=== PATIENT | female | born 1955 | race Caucasian/White ===

== ENCOUNTER 2021-02-25 08:55 | Outpatient (REF) | payer MEDICARE, OTHER, SELFPAY ==
[2021-02-25 11:07] LABS: MANUAL DIFF FLAG NO
[2021-02-25 11:13] LABS: Basophils Percent Auto 0.8 % (0-2); Eosinophils Absolute Auto 0.3 X10*3/uL (0.0-0.4); Hematocrit 43.4 % (37-47); Hemoglobin 14.5 g/dl (12.0-16.0); Imm Gran Abs Auto 0.01 X10*3/uL (0.00-0.03); Imm Gran Pct Auto 0.2 % (0.0-0.4); Mean Corpuscular HGB Conc 33.4 g/dl (31.0-35.0); Mean Corpuscular Hemoglobin 29.1 pg (27.0-33.0); Mean Platelet Volume 11.5 fL (9.4-12.3); Monocytes Absolute Auto 0.4 X10*3/uL (0.1-1.2); Monocytes Percent Auto 8.1 % (2-11); Neutrophils Absolute Auto 2.4 X10*3/uL (2.0-8.3); Neutrophils Percent Auto 45.9 % (45-73); Platelet Count 207 X10*3/uL (160-400); Red Blood Count 4.99 X10*6/uL (4.20-5.50); Red Cell Distribution Width 13.5 % (11.0-16.0); White Blood Count 5.2 X10*3/uL (4.8-10.8)
[2021-02-25 11:44] LABS: Alanine Aminotransferase 20 U/L (0-31); Alkaline Phosphatase 56 U/L (39-117); Anion Gap 11 (12-20); Aspartate Amino Transferase 21 U/L (5-31); Blood Urea Nitrogen 13 mg/dL (9-16); Calcium 9.3 mg/dL (8.4-10.2); Carbon Dioxide 28 mmol/L (22-29); Chloride 107 mmol/L (96-108); Cholesterol 229 mg/dL; Estimated Glomerular Filt Rate > 60; Glucose Fasting 90 mg/dL (60-99); HDL Cholesterol 57 mg/dL; LDL Cholesterol Calculated 148 mg/dl; Potassium 4.4 mmol/L (3.3-5.1); Sodium 142 mmol/L (135-145); Total Protein 6.9 g/dL (6.5-8.0); Triglycerides 124 mg/dL
== END 2021-02-25 08:56 | disposition home or self-care (01) ==
LOC: HO.MANLDS 08:55
PROVIDERS: PCP Internal Medicine; Visit Provider Physician Assistant
DX: E78.00 Pure hypercholesterolemia, unspecified (principal)
CPT/HCPCS: 36415; 80053; 80061; 85025

== ENCOUNTER 2021-07-23 14:27 | Outpatient (REF) | payer MEDICARE, OTHER, SELFPAY ==
--- NOTE | ~2021-07-23 | XR_ITS ---
EXAMINATION: XR LUMBOSACRAL SPINE CLINICAL INFORMATION: Low back pain COMPARISON: None TECHNIQUE: Three views of the lumbosacral spine. FINDINGS: There is mild curvature of the lower lumbar spine to the right. Bone alignment is otherwise normal. There is mild disc space narrowing at L1-L2. There is multilevel degenerative spondylosis. There is lower lumbar spine facet arthritis. XR/XR lumbar spine 2-3V IMPRESSION: Degenerative changes.
== END 2021-07-23 14:28 | disposition home or self-care (01) ==
LOC: HO.XRAY 14:27
PROVIDERS: PCP Internal Medicine; Visit Provider Physician Assistant
DX: M51.36 Other intervertebral disc degeneration, lumbar region (principal)
CPT/HCPCS: 72100

== ENCOUNTER 2021-08-11 07:20 | Outpatient (REF) | payer MEDICARE, OTHER, SELFPAY ==
--- NOTE | ~2021-08-11 | MR_ITS ---
EXAMINATION: MR LUMBAR SPINE WITHOUT CONTRAST CLINICAL INFORMATION: Intervertebral disc degeneration. Low back pain. COMPARISON: Lumbar spine radiographs 07/23/2021. TECHNIQUE: MRI of the lumbar spine was obtained using routine sequences without contrast. FINDINGS: There is grade 1 anterolisthesis of L4 on L5 related to advanced facet degenerative changes at this level. Alignment is otherwise normal. Vertebral heights are preserved. No acute bone marrow signal changes. There is loss of intervertebral disc height and T2 signal intensity at multiple levels related to disc degeneration. The tip of the conus medullaris is located at L2. No mass effect on the conus. Visualized distal cord signal intensity is normal. At L1-L2 there is a diffusely bulging disc. Bilateral facet degenerative change. Mild canal stenosis. No mass effect on the traversing or foraminal nerve roots. At L2-L3 there is a diffusely bulging disc. Bilateral facet degenerative change. Mild canal stenosis. No mass effect on the traversing or foraminal nerve roots. At L3-L4 there is a diffusely bulging disc. Bilateral facet degenerative change. Mild canal stenosis. There is asymmetric narrowing of the left subarticular zone causing medial displacement of the left traversing L4 nerve roots. No foraminal nerve root compression. At L4-L5 there is a shallow central protrusion superimposed upon a pseudodisc bulge. Advanced bilateral facet degenerative change. Severe canal stenosis. Moderate compression of the left L4 foraminal nerve root. At L5-S1 there is a slightly bulging disc. Bilateral facet degenerative change. No canal stenosis. Partial effacement of the perineural fat with mild mass effect on both L5 foraminal nerve roots. Limited visualization of the retroperitoneal anatomy reveals no abnormal finding. Psoas and paraspinal muscle groups are symmetric. MR/MR lumbar spine wo con IMPRESSION: There is multilevel degenerative spondylosis of the lumbar spine with grade 1 anterolisthesis of L4 on L5 related to advanced facet degenerative changes at this level. Severe canal stenosis at L4-L5. Mild canal stenosis at L1-L2, L2-L3, and L3-L4. There are varying degrees of mass effect on the traversing and foraminal segments of the nerve roots as described above. For instance at L4-L5 there is moderate compression of the left L4 foraminal nerve root. Mild mass effect on both L5 foraminal nerve roots related to degenerative changes at L5-S1.
== END 2021-08-11 07:21 | disposition home or self-care (01) ==
LOC: HO.MRI 07:20
PROVIDERS: Visit Provider Physician Assistant
DX: M51.36 Other intervertebral disc degeneration, lumbar region (principal)
CPT/HCPCS: 72148

== ENCOUNTER 2022-02-24 13:06 | Outpatient (REF) | payer MEDICARE, OTHER, SELFPAY ==
--- NOTE | ~2022-02-24 | US_ITS ---
EXAMINATION: US RETROPERITONEAL LIMITED (AORTA) CLINICAL INFORMATION: Family history of abdominal aortic aneurysm. COMPARISON: None TECHNIQUE: Tipton-scale, color Doppler and spectral Doppler evaluation of the abdominal aorta. FINDINGS: The aorta is atherosclerotic. The measurements of the aorta in maximum AP and transverse dimensions respectively are as follows: Proximal: 2.6 x 2.6 cm. Mid: 2.2 x 2.2 cm. Distal: 2.1 x 1.6 cm. PSV: 77 cm/s. The measurements of the common iliac arteries in maximum AP and TRV dimensions are as follows: Right Common Iliac Artery: 1.3 x 1.4 cm. Left Common Iliac Artery: 1.3 x 1.5 cm. US/US abdominal aortic aneurysm IMPRESSION: Negative for abdominal aortic aneurysm.
== END 2022-02-24 13:07 | disposition home or self-care (01) ==
LOC: HO.US 13:06
PROVIDERS: Visit Provider Physician Assistant
DX: Z13.6 Encounter for screening for cardiovascular disorders (principal); Z82.49 Family history of ischemic heart disease and other diseases of the circulatory system
CPT/HCPCS: 76706

== ENCOUNTER 2023-02-26 07:16 | Outpatient (REF) | payer MEDICARE, OTHER, SELFPAY ==
[2023-02-26 11:24] LABS: MANUAL DIFF FLAG NO
[2023-02-26 11:31] LABS: Basophils Absolute Auto 0.1 X10*3/uL (0.0-0.2); Eosinophils Absolute Auto 0.2 X10*3/uL (0.0-0.4); Eosinophils Percent Auto 2.2 % (0-4); Hematocrit 44.5 % (37.0-47.0); Hemoglobin 14.7 g/dl (12.0-16.0); Imm Gran Abs Auto 0.07 X10*3/uL (0.00-0.03); Lymphocytes Absolute Auto 1.9 X10*3/uL (1.2-4.9); Lymphocytes Percent Auto 28.4 % (20-40); Mean Corpuscular Hemoglobin 29.5 pg (27.0-33.0); Mean Corpuscular Volume 89.4 fL (80.0-98.0); Monocytes Absolute Auto 0.5 X10*3/uL (0.1-1.2); Monocytes Percent Auto 8.1 % (2-11); Neutrophils Percent Auto 59.3 % (45-73); Platelet Count 214 X10*3/uL (160-400); Red Blood Count 4.98 X10*6/uL (4.20-5.50); Red Cell Distribution Width 13.6 % (11.0-16.0); White Blood Count 6.7 X10*3/uL (4.8-10.8)
[2023-02-26 12:10] LABS: Alanine Aminotransferase 16 U/L (0-31); Albumin Level 4.2 g/dL (3.5-5.0); Alkaline Phosphatase 55 U/L (39-117); Anion Gap 11 (12-20); Aspartate Amino Transferase 18 U/L (5-31); Blood Urea Nitrogen 24 mg/dL (9-16); Calcium 9.7 mg/dL (8.4-10.2); Carbon Dioxide 30 mmol/L (22-29); Chloride 104 mmol/L (96-108); Estimated Glomerular Filt Rate > 60; Glucose Random 86 mg/dL (60-115); Iron 86 mcg/dL (30-160); Magnesium 2.2 mg/dL (1.6-2.6); Percent Iron Saturation 27 % (15-50); Potassium 4.2 mmol/L (3.3-5.1); Sodium 141 mmol/L (135-145); Total Iron Binding Capacity 324 mcg/dL (228-428); Total Protein 7.1 g/dL (6.5-8.0); Unsaturated Iron Binding 238 ug/dL
[2023-02-26 12:27] LABS: Ferritin 71 ng/mL (10-250); Folate 9.2 ng/mL (> or = 4.0); Free T4 (Free Thyroxine) 0.96 ng/dL (0.71-1.85); Thyroid Stimulating Hormone 2.74 uIU/mL (0.32-4.0); Vitamin B12 600 pg/mL (200-900); Vitamin D 25-OH Total 59.7 ng/mL (>30)
[2023-03-01 13:53] LABS: Thyroglobulin Antibodies <1 IU/mL (< or = 1)
[2023-03-04 16:38] LABS: Thyrotropin Receptor Antibody 2.28 IU/L (<=2.00)
== END 2023-02-26 07:17 | disposition home or self-care (01) ==
LOC: HO.WFDLDS 07:16
PROVIDERS: Visit Provider Physician Assistant
DX: L63.8 Other alopecia areata (principal); R23.9 Unspecified skin changes
CPT/HCPCS: 36415; 80053; 82306; 82607; 82728; 82746; 83520; 83540; 83735; 84439; 84443; 84591; 85025; 86800

== ENCOUNTER 2023-04-13 07:48 | Outpatient (REF) | payer MEDICARE, OTHER, SELFPAY ==
[2023-04-15 10:48] LABS: Thyroglobulin Antibodies <1 IU/mL (< or = 1); Thyroid Peroxidase Antibodies 1 IU/mL (<9)
[2023-04-17 15:54] LABS: Thyrotropin Receptor Antibody <1.00 IU/L (<=2.00)
== END 2023-04-13 07:49 | disposition home or self-care (01) ==
LOC: HO.MANLDS 07:48
PROVIDERS: Visit Provider Physician Assistant
DX: E06.3 Autoimmune thyroiditis (principal)
CPT/HCPCS: 36415; 83520; 86376; 86800

== ENCOUNTER 2024-08-07 09:36 | Outpatient (REF) | payer MEDICARE, OTHER, SELFPAY ==
[2024-08-07 10:10] LABS: MANUAL DIFF FLAG NO
[2024-08-07 10:39] LABS: Basophils Percent Auto 0.6 % (0-2); Eosinophils Absolute Auto 0.1 X10*3/uL (0.0-0.4); Eosinophils Percent Auto 2.4 % (0-4); Hemoglobin 14.2 g/dl (12.0-16.0); Imm Gran Abs Auto 0.02 X10*3/uL (0.00-0.03); Imm Gran Pct Auto 0.4 % (0.0-0.4); Lymphocytes Absolute Auto 1.6 X10*3/uL (1.2-4.9); Lymphocytes Percent Auto 33.1 % (20-40); Mean Corpuscular Hemoglobin 29.8 pg (27.0-33.0); Mean Corpuscular Volume 90.1 fL (80.0-98.0); Mean Platelet Volume 10.6 fL (9.4-12.3); Monocytes Absolute Auto 0.4 X10*3/uL (0.1-1.2); Monocytes Percent Auto 7.8 % (2-11); Neutrophils Absolute Auto 2.7 x10*3/uL (2.0-8.3); Neutrophils Percent Auto 55.7 % (45-73); Platelet Count 186 X10*3/uL (160-400); Red Blood Count 4.77 X10*6/uL (4.20-5.50); Red Cell Distribution Width 13.5 % (11.0-16.0); White Blood Count 4.9 X10*3/uL (4.8-10.8)
[2024-08-07 11:16] LABS: Anion Gap 9 (12-20); Estimated Average Glucose 94 mg/dL; Hemoglobin A1C 110.7298 umol/L; Hemoglobin A1c % 4.9 % (<6.0); Total Hemoglobin (HGBA1C) 3652.5344 umol/L
[2024-08-07 11:21] LABS: Albumin Level 3.9 g/dL (3.5-5.0); Alkaline Phosphatase 41 U/L (39-117); Aspartate Amino Transferase 22 U/L (5-31); Blood Urea Nitrogen 13 mg/dL (9-16); Calcium 9.6 mg/dL (8.4-10.2); Carbon Dioxide 30 mmol/L (22-29); Chloride 107 mmol/L (96-108); Cholesterol 224 mg/dL (<200); Estimated Glomerular Filt Rate > 60; Glucose Random 89 mg/dL (60-115); HDL Cholesterol 65 mg/dL (>40); LDL Cholesterol Calculated 139 mg/dL (<100); Sodium 142 mmol/L (135-145); Total Protein 6.7 g/dL (6.5-8.0); Triglycerides 103 mg/dL (<150)
[2024-08-07 11:50] LABS: Free T4 (Free Thyroxine) 0.96 ng/dL (0.71-1.85); Thyroid Stimulating Hormone 1.75 uIU/mL (0.32-4.0); Vitamin D 25-OH Total 45.4 ng/mL (>30)
[2024-08-07 11:51] LABS: Folate 11.4 ng/mL (> or = 4.0); Vitamin B12 586 pg/mL (200-900)
[2024-08-07 13:02] LABS: Alanine Aminotransferase 22 U/L (0-31)
== END 2024-08-07 09:37 | disposition home or self-care (01) ==
LOC: HO.LAB 09:36
PROVIDERS: PCP Internal Medicine; Visit Provider Physician Assistant
DX: Z00.00 Encounter for general adult medical examination without abnormal findings (principal); Z13.1 Encounter for screening for diabetes mellitus
CPT/HCPCS: 36415; 80053; 80061; 82306; 82607; 82746; 83036; 84439; 84443; 85025

== ENCOUNTER 2025-08-14 15:23 | Outpatient (REF) | payer MEDICARE, OTHER, SELFPAY ==
[2025-08-14 18:07] LABS: MANUAL DIFF FLAG NO
[2025-08-14 18:52] LABS: Alanine Aminotransferase 32 U/L (0-31); Albumin Level 4.3 g/dL (3.5-5.0); Alkaline Phosphatase 47 U/L (39-117); Anion Gap 10 (12-20); Aspartate Amino Transferase 26 U/L (5-31); Blood Urea Nitrogen 22 mg/dL (9-16); Calcium 9.0 mg/dL (8.4-10.2); Carbon Dioxide 28 mmol/L (22-29); Chloride 107 mmol/L (96-108); Cholesterol 223 mg/dL (<200); Estimated Glomerular Filt Rate > 60; HDL Cholesterol 58 mg/dL (>40); Potassium 4.2 mmol/L (3.3-5.1); Sodium 141 mmol/L (135-145); Total Protein 7.2 g/dL (6.5-8.0); Triglycerides 237 mg/dL (<150)
[2025-08-14 19:03] LABS: Hematocrit 45.3 % (37.0-47.0); Hemoglobin 14.7 g/dl (12.0-16.0); Imm Gran Abs Auto 0.02 X10*3/uL (0.00-0.03); Imm Gran Pct Auto 0.3 % (0.0-0.4); Lymphocytes Absolute Auto 2.1 X10*3/uL (1.2-4.9); Mean Corpuscular HGB Conc 32.5 g/dl (31.0-35.0); Mean Corpuscular Hemoglobin 28.9 pg (27.0-33.0); Mean Corpuscular Volume 89.0 fL (80.0-98.0); NRBC Abs Auto 0.000 X10*3/uL (0.0-0.012); NRBC Pct Auto 0.0 /100WBC (0.0-0.2); Platelet Count 215 X10*3/uL (160-400); Red Blood Count 5.09 X10*6/uL (4.20-5.50); White Blood Count 7.0 X10*3/uL (4.8-10.8)
--- OUTSIDE RECORDS SUMMARY | 2025-08-14 19:47 | XMS_ITS | Encounter Summary ---
Author Organization [facility] Address [address] [facility] [address] [place] [address] Phone Care Team Providers Care Balance Truing Inspector Name Role Phone Herve Torres DO Primary Care Provider [phone] Herve Torres DO Unavailable Gavin Barton MD Unavailable [phone] Oc Landin MD Unavailable [phone] Elías Baldwin MD Unavailable [phone] Patrizia Melara NP Unavailable [phone] Reason for Referral * Physical Therapy (Routine) - Closed Specialty Diagnoses / Procedures Referred By Contemani t Referred To Contact Physical Therapy Diagnoses Encounter for rehabilitation System, Provider Not In, [facility] [id number] [place] [address] Phone: tel: Referral ID Status Reason Start Date Expiration Date Visits Re quested Visits Authorized [id number] Closed 06/29/2018 06/29/2019 1 1 Encounter Details Date Type Department Care Team (Latest Contact Info) Description 06/29/2018 Transcribe Orders [facility] [address] [place] [address] Victorion Soares PA [facility] [employer] [place] [address] [address] Encounter for rehabilitation (Primary Dx) Social History Tobacco Use Types Packs/Day Years Used Date Smoking Tobacco: Never Smokeless Tobacco: Never Alcohol Use Standard Drinks/Week Comments Yes 2 (1 standard drink = 0.6 oz pur e alcohol) monthly Comments No Sex and Gender Information Value Date Recorded Sex Assigned at Not on file Legal Sex Female 7:16 PM EST Gender Identity Not on file Sexual Orientation Not on file Occupation Industry Job Start Date Job End Date retired Not on file Not on file Not on file documented as of this encounter Plan of Treatment Scheduled Referrals Name Type Priority Associated Diagnoses Orde r Schedule Ambulatory referral to [facility] Physical Therapy Outpatient Referral Routine Encounter for rehabilitation Ordered: 06/29/2018 documented as of this encounter Visit Diagnoses Diagnosis Encounter for rehabilitation- Primary documented in this encounter Additional Health Concerns Infection Onset Date Last Indicated Resolved Time CoV-Risk 06/26/2020 06/26/2020 07/10/2020 1:24 AM EDT documented as of this encounter Care Teams Balance Truing Inspector Relationship Specialty Start Date End Date Herve Torres DO PCP - General 04/17/14 Herve Torres DO Historical LMR Provider 08/07/17 Gavin Barton MD [address] [place] [address] Historical LMR Provider 08/07/17 10/25/21 Oc Landin MD [address] [place] [phone] Historical LMR Provider 08/07/17 2 Elías Baldwin MD [address] [place] [address] Historical LMR Provider 08/07/17 Patrizia Melara NP [address] [place] [address] Historical LMR Provider 08/07/17 2 documented as of this encounter Additional Source Comments The information contained in this document represents components of the legal health record. It is not the complete legal health record.[facility]
--- OUTSIDE RECORDS SUMMARY | 2025-08-14 19:47 | XMS_ITS | Encounter Summary ---
Author Organization [facility] Address [address] [facility] [address] [place] [address] Phone Care Team Providers Care Net Trainer Name Role Phone Herve Torres DO Primary Care Provider [phone] Herve Torres DO Unavailable Gavin Barton MD Unavailable [phone] Oc Landin MD Unavailable [phone] Elías Baldwin MD Unavailable [phone] Patrizia Melara NP Unavailable [phone] Encounter Details Date Type Department Care Team (Late st Contact Info) Description 07/12/2019 Procedure Pass [facility] Admitting Dept Virtual Department [address] [place] [address] Social History Tobacco Use Types Packs/Day Years Used Date Smoking Tobacco: Former Smokeless Tobacco: Never Alcohol Use Standard Drinks/Week Comments Yes 0 (1 standard drink = 0.6 oz pur e alcohol) 2x monthly Comments No Sex and Gender Information Value Date Recorded Sex Assigned at Not on file Legal Sex Female 7:16 PM EST Gender Identity Not on file Sexual Orientation Not on file Occupation Industry Job Start Date Job End Date retired Not on file Not on file Not on file documented as of this encounter Plan of Treatment Not on file documented as of this encounter Visit Diagnoses Not on filedocumented in this encounter Additional Health Concerns Infection Onset Date Last Indicated Resolved Time CoV-Risk 06/26/2020 06/26/2020 07/10/2020 1:24 AM EDT documented as of this encounter Care Teams Net Trainer Relationship Specialty Start Date End Date Herve Torres DO PCP - General 04/17/14 Grantsha Herve SantanaDO Historical LMR Provider 08/07/17 Gavin Barton MD [address] [address] Historical LMR Provider 08/07/17 10/25/21 Oc Landin MD [address] [place] [phone] Historical LMR Provider 08/07/17 2 Elías Baldwin MD [address] [place] [address] Historical LMR Provider 08/07/17 Patrizia Melara NP [address] [place] [address] Historical LMR Provider 08/07/17 2 documented as of this encounter Additional Source Comments The information contained in this document represents components of the legal health record. It is not the complete legal health record.[facility]
--- OUTSIDE RECORDS SUMMARY | 2025-08-14 19:47 | XMS_ITS | Encounter Summary ---
Author Organization [facility] Address [address] [facility] [address] [place] [address] Phone Care Team Providers Care Key Filer Name Role Phone GrantHerve dalton Max MCCRAY Primary Care Provider [phone] Herve Torres DO Unavailable Gavin Barton MD Unavailable [phone] Oc Landin MD Unavailable [phone] Elías Baldwin MD Unavailable [phone] Patrizia Melara NP Unavailable [phone] Encounter Details Date Type Department Care Team (Latest Contact Info) Description 09/16/2021 Transcribe Orders Virtual Department [address] [place] [address] Jimena Esquivel NP [address] [place] [address] Abdominal pain, unspecified abdominal location (Primary Dx) Social History Tobacco Use Types [...] on file documented as of this encounter Results * US Abdomen Complete (09/25/2021 9:55 AM EST) Anatomical Region Laterality Modality Abdomen Ultrasound 09/25/2021 10:0 1 AM EST Impressions 09/25/2021 10:06 AM EST 1. No explanation for abdominal pain. 2. 6 mm hyperechoic mass within the right kidney, likely an angiomyolipoma. Narrative 09/25/2021 10:06 AM EST HISTORY: Abdominal pain. COMPARISON: None FINDINGS: Biliary: The gallbladder appears normal. No pericholecystic fluid or sonographic Mcmahon's sign. Proximal common duct normal measuring 6 mm in diameter. Liver: No abnormalities demonstrated. Spleen: No abnormalities demonstrated. Pancreas: No abnormalities demonstrated. Kidneys: 6 mm x 5 mm hyperechoic mass within the cortex of the mid-lower right kidney. Kidneys otherwise appear normal. Abdominal aorta/IVC: No abnormalities demonstrated. Procedure Note Steven Colindres MD - 09/25/2021 HISTORY: Abdominal pain. COMPARISON: None FINDINGS: Biliary: The gallbladder appears normal. No pericholecystic fluid orsonographic Mcmahon's sign. Proximal common duct normal measuring 6 mm indiameter. Liver: No abnormalities demonstrated. Spleen: No abnormalities demonstrated. Pancreas: No abnormalities demonstrated. Kidneys: 6 mm x 5 mm hyperechoic mass within the cortex of the mid-lowerright kidney. Kidneys otherwise appear normal. Abdominal aorta/IVC: No abnormalities demonstrated. IMPRESSION: 1. No explanation for abdominal pain. 2. 6 mm hyperechoic mass within the right kidney, likely anangiomyolipoma. us Jimena Esquivel PULPER OPERATOR IMG US ABDOMEN Final Res ult documented in this encounter Visit Diagnoses Diagnosis Abdominal pain, unspecified abdominal location- Primary Abdominal pain, unspecified abdominal location documented in this encounter Care Teams Key Filer Relationship Specialty Start Date End Date Herve Torres DO PCP - General 04/17/14 Herve Torres DO Historical LMR Provider 08/07/17 Gavin Barton MD 22 [facility], [facility] [address] [place] [address] Historical LMR Provider 08/07/17 10/25/21 Oc Landin MD [address] [place] [phone] Historical LMR Provider 08/07/17 2 Elías Baldwin MD [address] [place] [address] Historical LMR Provider 08/07/17 Patrizia Melara NP [address] [place] [address] Historical LMR Provider 08/07/17 2 documented as of this encounter Additional Source Comments The information contained in this document represents components of the legal health record. It is not the complete legal health record.[facility]
--- OUTSIDE RECORDS SUMMARY | 2025-08-14 19:47 | XMS_ITS | Encounter Summary ---
Author Organization [facility] Address [address] [address] Phone Care Team Providers Care Supervisor Publications Production Name Role Phone GrantHerve dalton Max MCCRAY Primary Care Provider [phone] Herve Torres DO Unavailable Gavin Barton MD Unavailable [phone] Oc Landin MD Unavailable [phone] Elías Baldwin MD Unavailable [phone] Patrizia Melara NP Unavailable [phone] Encounter Details Date Type Department Care Team (Late st Contact Info) Description 11/17/2017 Ancillary Orders [facility] [address] [place] [address] Gavin Barton MD 22 [facility], [facility] [address] [place] [address] Breast screening Social History Tobacco Use Types Packs/Day Years [...] documented as of this encounter Results * BI MAMMOGRAM SCREENING WITH TOMOSYNTHESIS WITH CAD (BILATERAL) (12/02/2018 10:49 AM EST) Anatomical Region Laterality Modality Breast Left, Breast Right, Breast Bilateral Bila teral Mammography 12/02/2018 1:18 PM EST Impressions 12/02/2018 1:21 PM EST Stable appearance relative to prior imaging. No findings suggestive of malignancy are seen. BI-RADS CATEGORY: 2 - Benign finding. DENSITY: There are scattered fibroglandular densities. POS - [id number] Narrative 12/02/2018 1:21 PM EST Full-field digital mammography is obtained with computer-aided detection. Comparison with prior imaging from 11/17/2017 is made with older imaging dating back as far as 12/12/2002 also reviewed. There is scattered fibroglandular density evident in the breasts. In addition to 2-D C view imaging, tomosynthesis images are obtained in two projections of each breast. There are prominent bilateral vascular calcifications and some macrocalcifications in the right breast evident.. No dominant soft tissue mass of concern, suspicious cluster of calcifications, significant interval skin changes, or architectural distortion is identified. Procedure Note Bobby Loja MD - 12/02/2018 Full-field digital mammography is obtained with computer-aided detection.Comparison with prior imaging from 11/17/2017 is made with older imagingdating back as far as 12/12/2002 also reviewed. There is scattered fibroglandular density evident in the breasts. Inaddition to 2-D C view imaging, tomosynthesis images are obtained in twoprojections of each breast. There are prominent bilateral vascular calcifications and somemacrocalcifications in the right breast evident.. No dominant soft tissuemass of concern, suspicious cluster of calcifications, significantinterval skin changes, or architectural distortion is identified. IMPRESSION: Stable appearance relative to prior imaging. No findings suggestive ofmalignancy are seen. BI-RADS CATEGORY: 2 - Benign finding. DENSITY: There are scattered fibroglandular densities. POS - [id number] Gavin Barton MD IMG MG EXAMS Final Result documented in this encounter Visit Diagnoses Diagnosis Breast screening Breast screening, unspecified Breast screening Breast screening, unspecified documented in this encounter Additional Health Concerns Infection Onset Date Last Indicated Resolved Time CoV-Risk 06/26/2020 06/26/2020 07/10/2020 1:24 AM EDT documented as of this encounter Care Teams Supervisor Publications Production Relationship Specialty Start Date End Date Herve Torres DO PCP - General 04/17/14 Herve Torres DO Historical LMR Provider 08/07/17 Gavin Barton MD [address] [place] [address] Historical LMR Provider 08/07/17 10/25/21 Oc Landin MD [address] [place] [phone] Historical LMR Provider 08/07/17 2 Elías Baldwin MD [address] [place] [address] Historical LMR Provider 08/07/17 Patrizia Melara NP [address] [place] [address] Historical LMR Provider 08/07/17 2 documented as of this encounter Additional Source Comments The information contained in this document represents components of the legal health record. It is not the complete legal health record.[facility]
--- OUTSIDE RECORDS SUMMARY | 2025-08-14 19:47 | XMS_ITS | Clinical Summary ---
Author Organization [facility] Address [address] [place] [address] Care Team Providers Care Debt Recovery Officer Name Role Phone Unavailable Primary Care Provider Unavailabl e Social History Tobacco Use Types Packs/Day Years Used Date Smoking Tobacco: Never Assessed Sex and Gender Information Value Date Recorded Sex Assigned at Not on file Gender Identity Not on file Sexual Orientation Not on file Plan of Treatment Not on file
--- OUTSIDE RECORDS SUMMARY | 2025-08-14 19:47 | XMS_ITS | Encounter Summary ---
Author Organization [facility] Address [address] [facility] [address] [place] [address] Phone Care Team Providers Care Machine Molder Squeeze Name Role Phone Herve Torres DO Primary Care Provider [phone] Herve Torres DO Unavailable Elías Baldwin MD Unavailable [phone] Encounter Details Date Type Department Care Team (Late st Contact Info) Description 10/23/2022 Procedure Pass [facility] - [address] [place] [address] Social History Tobacco Use Types Packs/Day Years Used Date Smoking Tobacco: Former Cigarettes 0.5 2 0 06/19/1974 - 03/19/1975 Smokeless Tobacco: Never Alcohol Use Standard Drinks/Week Comments Yes 1 (1 standard drink = 0.6 oz pur [...] Diagnoses Not on filedocumented in this encounter Care Teams Machine Molder Squeeze Relationship Specialty Start Date End Date Herve Torres DO PCP - General 04/17/14 Herve Torres DO [email or web address] Historical LMR Provider 08/07/17 Elías Baldwin MD [address] [place] [address] Historical LMR Provider 08/07/17 documented as of this encounter Additional Source Comments The information contained in this document represents components of the legal health record. It is not the complete legal health record.[facility]
--- OUTSIDE RECORDS SUMMARY | 2025-08-14 19:47 | XMS_ITS | Encounter Summary ---
Author Organization [facility] Address [address] [facility] [address] [place] [address] Phone Care Team Providers Care Ranch Rider Name Role Phone Herve Torres DO Primary Care Provider [phone] Herve Torres DO Unavailable Gavin Barton MD Unavailable [phone] Oc Landin MD Unavailable [phone] Elías Baldwin MD Unavailable [phone] Patrizia Melara NP Unavailable [phone] Encounter Details Date Type Department Care Team (Late st Contact Info) Description 05/29/[address] [facility], [address] [address] Social History Tobacco Use Types Packs/Day Years [...] on file documented as of this encounter Last Filed Vital Signs Vital Sign Reading Time Taken Comments Blood Pressure - - Pulse - - Temperature - - Respiratory Rate - - Oxygen Saturation - - Inhaled Oxygen Concentration - - Weight 72.6 kg (160 lb) 05/30/2020 2:53 PM EDT Height 170.2 cm (5' 7 ) 05/30/2020 2:53 PM EDT Body Mass Index 25.06 05/30/2020 2:53 PM EDT documented in this encounter Plan of Treatment Not on file documented as of this encounter Visit Diagnoses Not on filedocumented in this encounter Additional Health Concerns Infection Onset Date Last Indicated Resolved Time CoV-Risk 06/26/2020 06/26/2020 07/10/2020 1:24 AM EDT documented as of this encounter Care Teams Ranch Rider Relationship Specialty Start Date End Date Herve Torres DO PCP - General 04/17/14 Herve Torres DO Historical LMR Provider 08/07/17 Gavin Barton MD [address] [place] [address] Historical LMR Provider 08/07/17 10/25/21 Oc Landin MD [address] [place] [phone] Historical LMR Provider 08/07/17 2 Elías Baldwin MD [address] [place] [address] Historical LMR Provider 08/07/17 Patrizia Melara NP [address] [place] [address] Historical LMR Provider 08/07/17 2 documented as of this encounter Additional Source Comments The information contained in this document represents components of the legal health record. It is not the complete legal health record.[facility]
--- OUTSIDE RECORDS SUMMARY | 2025-08-14 19:47 | XMS_ITS | Encounter Summary ---
Author Organization [facility] Address [address] [facility] [address] [place] [address] Phone Care Team Providers Care Lead Burner Supervisor Name Role Phone GrantHerve dalton Max MCCRAY Primary Care Provider [phone] Herve Torres DO Unavailable Elías Baldwin MD Unavailable [phone] Encounter Details Date Type Department Care Team (Late st Contact Info) Description 10/04/2023 Procedure Pass [facility], [address] [address] Social History Tobacco Use Types Packs/Day Years Used Date Smoking Tobacco: Former Cigarettes 0.5 2 0 06/19/1974 - 03/19/1975 Smokeless Tobacco: Never Alcohol Use Standard Drinks/Week Comments Yes 1 (1 standard drink = 0.6 oz pur e alcohol) 2x monthly Education Answer Date Recorded Are you interested in more education? Not on jane e 02/11/2023 Are you concerned about learning? Not on file 02/11/2023 No 02/11/2023 No 02/11/2023 Digital Access Answer Date Recorded No 03/15/2023 No 03/15/2023 Reliable internet access at home? Not on file 03/15/2023 Device with a working camera? Not on file Comments No Sex and Gender Information Value [...] on filedocumented in this encounter Care Teams Lead Burner Supervisor Relationship Specialty Start Date End Date Herve Torres DO PCP - General 04/17/14 Herve Torres DO Historical LMR Provider 08/07/17 Elías Baldwin MD [address] [place] [address] Historical LMR Provider 08/07/17 documented as of this encounter Additional Source Comments The information contained in this document represents components of the legal health record. It is not the complete legal health record.[facility]
--- OUTSIDE RECORDS SUMMARY | 2025-08-14 19:47 | XMS_ITS | Clinical Summary ---
Author Organization [employer] [facility] Address [address] [place] [id number] Phone Care Team Providers Care Residential Sales Consultant Name Role Phone Georgi Shpeard Primary Care Provider [phone] Georgi Shepard DO Unavailable Elías Baldwin MD Unavailable [phone] Allergies No known active allergies Medications estradioL (YUVAFEM) 10 mcg TabIndications: Vaginal dryness, menopausal Place 1 tablet (10 mcg total) vaginally 2 (two) times a week. 24 tablet 3 5 Active Active Problems Problem Noted Date Diagnosed Date Menopausal vaginal dryness 11/08/2018 Assessment & Plan (01/30/2019 5:23 PM EDT): María has been using Yuvafem and thinks it has been helpful with vaginal and urinary sx. She will continue; we reviewed usage twice a week. Assessment & Plan (11/08/2018 12:55 PM EST): We reviewed exam findings of nl wet prep, no evidence of vaginitis/infection and atrophic changes as likely cause of some/most sx. Advised immediate change to scant unscented Dove soap only, consider starting vaginal estrogen - this was prescribed by Dr. Baldwin in 2017 but she did not start then. She will do so - has lots at home - will use nightly for 2 weeks, then twice a week. We will follow up soon as she will book an annual. Encounters Date Type Department Care Team Description 06/19/2025 6:55 AM EDT - 06/19/2025 11:59 PM EDT Hospital Encounter [facility], Bone Density - [facility] [address] [place] [address] Gavin Barton MD Discharge Disposition: Home or Self Care from Last 3 Months Immunizations Immunization Administration Dates Next Due COVID-19 (Pre-08/09) Moderna Vaccine, mRNA, PF 01/06/2021,12/09/2020 Hepatitis A, Adult 06/25/2010,12/11/2009 INFLUENZA, SPLIT VIRUS, TRIVALENT PF 06/23/2017 Influenza High-Dose Quadriva lent Preservative Free IM 08/05/2022 Influenza Quadrivalent Adjuv anted Preservative Free IM 09/02/2021 Influenza Quadrivalent MDCK Preservative Free IM 08/10/2019,07/30/2018 Influenza Quadrivalent w/ Preservative IM 2020,07/18/2020,11/13/2015 Influenza Trivalent Adjuvant ed Preservative free IM 07/01/2016 Pneumococcal conjugate PCV20 08/05/2022 Tdap 04/28/2022 Typhoid, ViCPs 12/11/2009 Zoster live 06/23/2017 Zoster recombinant 2020,10/24/2019 Zoster unspecified formulation 10/18/2016 Family History Medical History Relation Comments Colon cancer Brother Breast cancer Cousin 1 maternal Breast cancer Cousin 2 maternal Breast cancer Cousin 3 maternal CV disease Father Cardiovascular disease Father Diabetes mellitus Father Cancer Maternal Aunt 1 has many M aunt and 1st cousins with breast cancer Breast cancer Maternal Aunt 2 Parkinson's disease Maternal Grandfather Alzheimer's disease Maternal Grandmother Breast cancer Mother COPD Mother Stroke Paternal Grandfather Relation Status Comments Brother Alive Cousin 1 Cousin 2 Cousin 3 Father Maternal Aunt 1 Maternal Aunt 2 Maternal Grandfather Maternal Grandmother Mother Paternal Grandfather Paternal Grandmother Social History Tobacco Use Types Packs/Day Years Used Date Smoking Tobacco: Former Cigarettes 0.5 2 0 06/19/1974 - 03/19/1975 Smokeless Tobacco: Never Tobacco Cessation:Counseling Given: Not Answered Alcohol Use Standard Drinks/Week Comments Yes 1 [...] file Not on file Not on file Last Filed Vital Signs Vital Sign Reading Time Taken Comments Blood Pressure 108/68 02/20/2025 1:43 PM EDT Pulse 71 11/26/2024 12:14 PM EST Temperature 36.7 C (98 F) 11/26/2024 12:14 PM EST Respiratory Rate 14 11/26/2024 12:14 PM EST Oxygen Saturation 97% 11/26/2024 12:14 PM EST Inhaled Oxygen Concentration - - Weight 64 kg (141 lb) 02/20/2025 1:43 PM EDT Height 170.2 cm (5' 7 ) 02/20/2025 1:43 PM EDT Body Mass Index 22.08 02/20/2025 1:43 PM EDT Plan of Treatment Health Maintenance Due Date Last Done Comments LIPID PANEL 1955 DEPRESSION SCREENING 1967 HEPATITIS C SCREENING 1973 COLOGUARD 2000 FIT TEST 2000 FOBT 2000 SIGMOIDOSCOPY 2000 VIRTUAL COLONOSCOPY 2000 INFLUENZA VACCINE (#1) 2025 , 07/01/2023, 06/23/2023, Additional history exists COVID-19 VACCINE ( season) 2025 10/13/2021, 01/06/2021, 12/09/2020 MAMMOGRAM 03/23/2027 03/23/2025, 03/0 04/2024, 11/13/2022, Additional history exists PAP SMEAR 10/23/2027 10/23/2022, 08/18, 08/19/2016 COLONOSCOPY 07/12/2029 07/12/2019 COLORECTAL CANCER SCREENING 07/12/2029 RSV VACCINE (1 - 1-dose 75+ series) 2030 Adult Td,Tdap Booster 04/28/2032 04/28/2022 HEPATITIS A VACCINES Aged Out 06/25/2010, 12/11/19 10 No longer eligible based on patient's age to complete this topic ZOSTER VACCINES Completed 2020, 04/2020, 06/23/2017, Additional history exists PNEUMOCOCCAL VACCINES (50+ years) Completed 08/05/2022 SMOKING STATUS SCREENING (Once After 26 Yrs) Completed 03/23/2025 OSTEOPOROSIS SCREENING INITIAL (ONE-TIME) Completed 06/19/2025 HIB VACCINES Aged Out No longer eligi ble based on patient's age to complete this topic MENINGOCOCCAL VACCINES (ACWY) Aged Out No longer eligible based on patient's age to complete this topic MENINGOCOCCAL VACCINES (B) Aged Out N o longer eligible based on patient's age to complete this topic Medical Devices Not on file Procedures Procedure Name Priority Date/Time Associated Diagnosis Comments BD DXA AXIAL (SPINE) WITH HIP Routine 06/19/2025 7:18 AM EDT Postmenopausal estrogen deficiency BI MAMMOGRAM SCREENING WITH TOMOSYNTHESIS WITH CAD (BILATERAL) Routine 03/23/2025 8:07 AM EDT Breast screening PAP TEST Routine 10/23/2022 12:00 AM EST ENDOSCOPY, COLON 07/12/2019 7:42 AM EDT from Last 3 Months or Most Recently Relevant to Health Maintenance Results * BD DXA AXIAL (SPINE) WITH HIP (06/19/2025 7:18 AM EDT) Anatomical Region Laterality Modality Bone Density Bone Density 06/19/2025 7:12 AM EDT Impressions 06/19/2025 5:36 PM EDT Interpretation: Normal bone mineral density. Narrative 06/19/2025 5:36 PM EDT Referred By: GAVIN BARTON Indications: Postmenopausal Scanner: [employer] with serial# of [id number] located at [facility] Bone Density Scan (DXA) 06/19/25 Details of prior DXA scans are available by clicking View Full Report BMD T- Z- Skeletal Site gm/cm2 score score BMD Change Since Prior Scan ------ ----- ----- PA Spine (L1 L2 L3) 1.244 2.10 4.10 -0.038 (-3.0%)* since 08/05/2016 Total Hip (Left) 0.991 0.40 1.90 -0.131 (-11.7%)* since 08/05/2016 Femoral Neck (Left) 0.864 0.10 1.90 -0.051 (-5.6%)* since 08/05/2016 ------ ----- ----- * Denotes significant change when >= 0.022 g/cm2 for the spine, 0.027 g/cm2 for the total hip, 0.029 g/cm2 for the femoral neck. Interpretation: Normal bone mineral density. Technical Quality: Imaging of all sites was of adequate quality.NOTE: We newly excluded one or more vertebrae. To allow comparisons with prior tests, we recalculated the total BMD of all prior spine tests after excluding the same vertebra(e). FRAX: A FRAX(r) score is not provided because the patient has normal bone density. Reviewed By: Emperatriz Denney MD on 06/19/2025 17:36:19 Additional Information: -World Health Organization criteria classify adults based on lowest T-score at PA spine, hip or forearm: Normal (T-score >= -1.0), Osteopenia (T-score between -1 and -2.5), or Osteoporosis (T-score <= -2.5). At [facility], T-scores are compared to peak bone density of a young white gender matched reference population. - For premenopausal women and men under the age of 50, Z-scores (comparison to age, gender, and ethnicity matched reference population) are used: Above expected range for age (Z-score >= 2.0), Within expected range of age (Z-score 1.9 to -1.9), or Below expected range for age (Z-score <= -2.0). - The Bone Health and Osteoporosis Foundation recommends that treatment be considered in men aged more than 50 years and in postmenopausal women with ANY of the following: Prior hip or vertebral fractures; T-score of <= -2.5 at the PA spine or hip; or 10 year fracture probability by FRAX of >= 3% for the hip or >= 20% for major osteoporotic fracture. - The FRAX algorithm (https://www.gerardo.ac.uk/FRAX/tool.aspx) is designed to predict 10-year fracture risk in treatment-naive adults between the ages of 40 and 90. It is not intended to be used in those receiving pharmacologic osteoporosis treatment. - The TBS is derived from the texture of the DXA spine image and has been shown to be related to bone microarchitecture and fracture risk. This data provides information independent of BMD value. It adds to fracture risk assessment with a FRAX adjusted for TBS score. If your patient had a TBS and qualified for a FRAX score, the reported FRAX score has been adjusted for TBS. TBS Score Interpretation 1.350 and greater Normal bone microarchitecture 1.200 to 1.350 Partially degraded bone microarchitecture 1.200 and less Degraded bone microarchitecture - Including race/ethnicity in the generation of T- or Z-scores or in the FRAX calculation is complicated, and currently undergoing active review to ensure that we can give patients the best information on their risk of fracture. - Some prior studies may not be compatible with our comparison software. - Click on View Full Report to see subsequent pages with images and prior bone density results. Procedure Note Emperatriz Denney MD - 06/19/2025 Referred By: GAVIN BARTON Indications: Postmenopausal Scanner: [employer] with serial# of [id number] located at [facility] Bone Density Scan (DXA) 06/19/25 Details of prior DXA scans are available by clicking View Full Report BMD T- Z- Skeletal Site gm/cm2 score score BMD Change Since Prior Scan ------ ----- PA Spine (L1 L2 L3) 1.244 2.10 4.10 -0.038 (-3.0%)* since08/05/2016 Total Hip (Left) 0.991 0.40 1.90 -0.131 (-11.7%)* since08/05/2016 Femoral Neck (Left) 0.864 0.10 1.90 -0.051 (-5.6%)* since08/05/2016 ------ ----- * Denotes significant change when >= 0.022 g/cm2 for the spine, 0.027g/cm2 for the total hip, 0.029 g/cm2 for the femoral neck. Interpretation: Normal bone mineral density. Technical Quality: Imaging of all sites was of adequate quality.NOTE: We newly excluded one or more vertebrae. To allow comparisons with priortests, we recalculated the total BMD of all prior spine tests after excluding the same vertebra(e). FRAX: A FRAX(r) score is not provided because the patient has normal bone density. Reviewed By: Emperatriz Denney MD on 06/19/2025 17:36:19 Additional Information: -World Health Organization criteria classify adults based on lowestT-score at PA spine, hip or forearm: Normal (T-score >= -1.0), Osteopenia (T-score between -1 and -2.5), or Osteoporosis (T-score <= -2.5). At [facility], T-scores are compared to peak bone density of a young white gender matched reference population. - For premenopausal women and men under the age of 50, Z-scores(comparison to age, gender, and ethnicity matched reference population) are used:Above expected range for age (Z-score >= 2.0), Within expected range of age (Z-score 1.9 to -1.9), or Below expected range for age (Z-score <= -2.0). - The Bone Health and Osteoporosis Foundation recommends that treatment be considered in men aged more than 50 years and in postmenopausal women with ANY of the following: Prior hip or vertebral fractures; T-score of <= -2.5 at the PA spine or hip; or 10 year fracture probability by FRAX of >= 3%for the hip or >= 20% for major osteoporotic fracture. - The FRAX algorithm (https://www.gerardo.ac.uk/FRAX/tool.aspx) is designed to predict 10-year fracture risk in treatment-naive adultsbetween the ages of 40 and 90. It is not intended to be used in those receiving pharmacologic osteoporosis treatment. - The TBS is derived from the texture of the DXA spine image and has been shown to be related to bone microarchitecture and fracture risk. This data provides information independent of BMD value. It adds to fracture risk assessment with a FRAX adjusted for TBS score. If your patient had a TBSand qualified for a FRAX score, the reported FRAX score has been adjusted for TBS. TBS Score Interpretation 1.350 and greater Normal bone microarchitecture 1.200 to 1.350 Partially degraded bone microarchitecture 1.200 and less Degraded bone microarchitecture - Including race/ethnicity in the generation of T- or Z-scores or in the FRAX calculation is complicated, and currently undergoing active review to ensure that we can give patients the best information on their risk of fracture. - Some prior studies may not be compatible with our comparison software. - Click on View Full Report to see subsequent pages with images andprior bone density results. IMPRESSION: Interpretation: Normal bone mineral density. Gavin PRIESTG BD BONE DENSITY DEXA Haz[place] l Result * BI MAMMOGRAM SCREENING WITH TOMOSYNTHESIS WITH CAD (BILATERAL) (03/23/2025 8:07 AM EDT) Anatomical Region Laterality Modality Breast Left, Breast Right, Breast Bilateral Bila teral Mammography 03/24/2025 11:1 2 AM EDT Impressions 03/24/2025 11:16 AM EDT No mammographic evidence of malignancy in either breast. Annual screening mammography is recommended. BI-RADS 1 NEGATIVE The patient will be notified of the results and recommendations. Narrative 03/24/2025 11:16 AM EDT BI MAMMOGRAM SCREENING WITH TOMOSYNTHESIS WITH CAD (BILATERAL) Additional patient information: Screening. COMPARISON: Comparison is made with relevant prior imaging. Breast composition: There are scattered areas of fibroglandular density. FINDINGS: No abnormal masses, suspicious calcifications, or other significant findings are identified mammographically in either breast. Procedure Note Luh Shen MD - 03/24/2025 BI MAMMOGRAM SCREENING WITH TOMOSYNTHESIS WITH CAD (BILATERAL) Additional patient information: Screening. COMPARISON: Comparison is made with relevant prior imaging. Breast composition: There are scattered areas of fibroglandular density. FINDINGS: No abnormal masses, suspicious calcifications, or other significantfindings are identified mammographically in either breast. IMPRESSION: No mammographic evidence of malignancy in either breast. Annual screening mammography is recommended. BI-RADS 1 NEGATIVE The patient will be notified of the results and recommendations. Provider Not In System PhD IMG MG EXAMS Final Result * Pap Test (10/23/2022 12:00 AM EST) 10/23/2022 10/26/2022 9:5 5 AM EST Narrative SEE NARRATIVE - 10/28/2022 2:48 PM EST [address] [address] Nematology Teacher: Quita Machuca MD LICENSED PRACTICAL NURSE Cytology Report FINAL DIAGNOSIS A. PAP SMEAR (SUREPATH) CE: SPECIMEN ADEQUACY: Satisfactory for evaluation; transformation zone absent/insufficient. INTERPRETATION: NEGATIVE FOR INTRAEPITHELIAL LESION OR MALIGNANCY. Electronically Signed Out By: NORMA Canales(ASCP) The Pap test is a screening test primarily for squamous cancers and precursors and has associated false-negative and false-positive results. New technologies such as liquid-based preparations may decrease but will not eliminate all false-negative results. Regular sampling and follow-up of unexplained clinical signs and symptoms are recommended to minimize false negative results. CLINICAL HISTORY Date of Last Menstrual Period: Not Provided Menstrual History: Post Menopausal Other Clinical Conditions: Screening Pap SPECIMEN SOURCE A: PAP SMEAR (SUREPATH) CE Patient Name: MARÍA RIVERA : 1955 (Age: 67) Sex: F Institution: [facility] Location: [facility] Date of Collection: 10/23/2022 Date of Reported: 10/28/2022 14:48 Results to: Gavin Barton MD, BS Gavin Barton MD CYTOLOGY ORDERABLES Final Res ult SEE NARRATIVE * ENDOSCOPY, COLON (07/12/2019 7:42 AM EDT) Narrative Transcriptions Steven Garcia MD - 07/12/2019 7:42 AM EDT Patient Name: María Nicole Attending MD:: STEVEN GARCIA MD Procedure Date: 07/12/2019 7:42 AM Date of : 1955 Age: 64 Admit Type: Outpatient Gender: Female Room: [place] [address] Referring MD: GEORGI SHEPARD DO Exam Type: Colonoscopy Indications: High risk colon cancer surveillance: Personal historyof colonic polyps, Family history of colon cancer in a first-degree relative Medications: Monitored Anesthesia Care Procedure: Informed consent was obtained from the patient after discussion of the indications, limitations,alternatives, benefits, and risks of the procedure. Risksspecifically discussed include but are not limited to medication reactions, missed lesions, bleeding, perforation, orthe need for emergent surgery. Throughout the procedure, the patient's blood pressure, pulse, end-tidal CO2, and oxygen saturations were monitored continuously. The Olympus adult variable colonoscope [id number] #5 was introduced through the anus and advanced to theterminal ileum. The colonoscopy was performed withoutdifficulty. The patient tolerated the procedure well. The qualityof the bowel preparation was good. Complications: No immediate complications. Estimated blood loss:None. Findings: The perianal and digital rectal examinations werenormal. Two sessile polyps were found in the rectum andascending colon. The polyps were diminutive in size. These polyps were removed with a cold biopsy forceps. Resection and retrieval were complete. The recto-sigmoid colon, sigmoid colon, descendingcolon, splenic flexure, transverse colon, hepatic flexure,cecum, appendiceal orifice, ileocecal valve, ileum, rectum (on retroflexion) and ascending colon (on retroflexion) appeared normal. Impression: - Two diminutive polyps in the rectum and in theascending colon, removed with a cold biopsy forceps. Resected and retrieved. - The recto-sigmoid colon, sigmoid colon, descending colon, splenic flexure, transverse colon, hepaticflexure, cecum, appendiceal orifice, ileocecal valve, terminal ileum, rectum and ascending colon are normal. Recommendation: - Discharge patient to home. - Resume previous diet. - Continue present medications. - Await pathology results. - Repeat colonoscopy in 5 years for surveillance. - I will send you pathology results by letter. If youdo not get results in 3 weeks telephone my office. STEVEN GARCIA MD 07/12/2019 8:13:04 AM This report has been signed electronically. Number of Addenda: 0 Note Initiated On: 07/12/2019 7:42 AM Procedure Code(s): --- Professional --- 12348, Colonoscopy, flexible; with biopsy, single or multiple --- Technical --- 88793, Colonoscopy, flexible; with biopsy, single or multiple Diagnosis Code(s): --- Professional --- Z86.010, Personal history of colonic polyps K62.1, Rectal polyp D12.2, Benign neoplasm of ascending colon Z80.0, Family history of malignant neoplasm of digestive organs --- Technical --- Z86.010, Personal history of colonic polyps K62.1, Rectal polyp D12.2, Benign neoplasm of ascending colon Z80.0, Family history of malignant neoplasm of digestive organs CPT copyright 2018 [employer]. All rights reserved. The codes documented in this report are preliminary and upon cell maker reviewmay be revised to meet current compliance requirements. [address] [place] [address] us Georgi Shepard DO GI PROCEDURE ORDERABLES Final Re sult from Last 3 Months or Most Recently Relevant to Health Maintenance Insurance [facility] [employer]ENSION MEDICARE SUPPLEMENT MEDICARE PART A & B Member Subscriber Plan / Payer (Ef fective 2020-Present) Name:María Rivera Member ID:[id number] Relation to Subscriber:Self Name:María Rivera Subscriber ID:[id number] Payer ID:[id number] Group ID:Not on file Type:Medicare Address: [employer] [address] [place] [address] [facility] EXTENSION MEDICARE SUPPLEMENT MEDICARE PART A & B Member Subscriber Plan / Payer (Ef fective 2020-Present) Name:María Rivera Member ID:[id number] Relation to Subscriber:Self Name:María Rivera Subscriber ID:[id number] Payer ID:[id number] Group ID:Not on file Type:Medicare Address: [employer] [address] [facility] MEDICARE SUPPLEMENT MEDICARE PART A & B [facility] MEDICARE SUPPLEMENT MEDICARE PART A & B [employer] MEDICARE SUPPLEMENT MEDICARE PART A & B [employer] [facility] MEDICARE SUPPLEMENT MEDICARE PART A & B [facility] MEDICARE SUPPLEMENT MEDICARE PART A & B [facility] MEDICARE SUPPLEMENT MEDICARE PART A & B Member Subscriber Plan / Payer (Ef fective 2020-Present) Name:María Rivera Member ID:[id number] Relation to Subscriber:Self Name:Mraía Rivera Subscriber ID:[id number] Payer ID:[id number] Group ID:Not on file Type:Medicare Address: [facility] [employer] [facility] [address] [address] [facility] MEDICARE SUPPLEMENT MEDICARE PART A & B Care Teams Residential Sales Consultant Relationship Specialty Start Date End Date Georgi Shepard DO [email or web address] PCP - General 04/17/14 Georgi Shepard DO Historical LMR Provider 08/07/17 Elías Baldwin MD [address] [place] [id number] Historical LMR Provider 08/07/17 Additional Source Comments The information contained in this document represents components of the legal health record. It is not the complete legal health record.[facility]
--- OUTSIDE RECORDS SUMMARY | 2025-08-14 19:47 | XMS_ITS | Encounter Summary ---
Author Organization [facility] Address [address] [facility] [address] [place] [address] Phone Care Team Providers Care Airline Mechanic Name Role Phone GrantHerve dalton Max MCCRAY Primary Care Provider [phone] Herve Torres DO Unavailable Gavin Barton MD Unavailable [phone] Oc Landin MD Unavailable [phone] Elías Baldwin MD Unavailable [phone] Patrizia Melara NP Unavailable [phone] Encounter Details Date Type Department Care Team (Late st Contact Info) Description 10/15/2017 Ancillary Orders [facility] [address] [place] [address] Gavin Barton MD [address] [facility], [address] [place] [address] Visit for screening mammogram Social History Tobacco Use Types Packs/Day Years [...] MAMMOGRAM SCREENING WITH TOMOSYNTHESIS WITH CAD (BILATERAL) (11/17/2017 8:00 AM EST) Anatomical Region Laterality Modality Breast Left, Breast Right, Breast Bilateral Bila teral Mammography 11/17/2017 9:09 AM EST Impressions 11/17/2017 9:23 AM EST No mammographic change indicative of malignancy. Routine screening is recommended. BI-RADS CATEGORY: 2 - Benign finding. DENSITY: The breast tissue is heterogeneously dense, an appearance which lowers the sensitivity of mammography. POS - [id number] Narrative 11/17/2017 9:23 AM EST FINDINGS: Bilateral full-field digital screening mammography is obtained and read in conjunction with computer-aided detection. 3-D tomosynthesis as well as 2-D C view imaging is also performed. Comparison includes the most recent exam from 07/09/2016 and as far back as 12/12/2002. Breasts are composed of heterogeneously dense fibroglandular tissue which limits mammographic sensitivity. Waxing and waning circumscribed masses bilaterally in a pattern consistent with cysts. No one area has more suspicious features than another. Scattered bilateral benign calcifications including vascular calcifications. No suspicious microcalcifications, architectural distortion, focal skin thickening, or new asymmetry is detected. Procedure Note Rodríguez Canales MD - 11/17/2017 FINDINGS: Bilateral full-field digital screening mammography is obtained and read inconjunction with computer-aided detection. 3-D tomosynthesis as well as2-D C view imaging is also performed. Comparison includes the most recentexam from 07/09/2016 and as far back as 12/12/2002. Breasts are composed of heterogeneously dense fibroglandular tissue whichlimits mammographic sensitivity. Waxing and waning circumscribed massesbilaterally in a pattern consistent with cysts. No one area has moresuspicious features than another. Scattered bilateral benigncalcifications including vascular calcifications. No suspiciousmicrocalcifications, architectural distortion, focal skin thickening, ornew asymmetry is detected. IMPRESSION: No mammographic change indicative of malignancy. Routine screening isrecommended. BI-RADS CATEGORY: 2 - Benign finding. DENSITY: The breast tissue is heterogeneously dense, an appearance whichlowers the sensitivity of mammography. POS - [id number] Gavin Barton MD IMG MG EXAMS Final Result documented in this encounter Visit Diagnoses Diagnosis Visit for screening mammogram Visit for screening mammogram documented in this encounter Additional Health Concerns Infection Onset Date Last Indicated Resolved Time CoV-Risk 06/26/2020 06/26/2020 07/10/2020 1:24 AM EDT documented as of this encounter Care Teams Airline Mechanic Relationship Specialty Start Date End Date Herve Torres DO PCP - General 04/17/14 Herve Torres DO Historical LMR Provider 08/07/17 Gavin Barton MD [address] [place] [address] Historical LMR Provider 08/07/17 10/25/21 Oc Landin MD [address] [place] [phone] Historical LMR Provider 08/07/17 2 Elías Baldwin MD [address] [place] [address] Historical LMR Provider 08/07/17 Patrizia Melara NP [address] [place] [address] Historical LMR Provider 08/07/17 2 documented as of this encounter Additional Source Comments The information contained in this document represents components of the legal health record. It is not the complete legal health record.[facility]
--- OUTSIDE RECORDS SUMMARY | 2025-08-14 19:47 | XMS_ITS | Encounter Summary ---
Author Organization [facility] Address [address] [address] Phone Care Team Providers Care Medical Technologist Prn Name Role Phone Herve Torres DO Primary Care Provider [phone] Herve Torres DO Unavailable Gavin Barton MD Unavailable [phone] Oc Landin MD Unavailable [phone] Elías Baldwin MD Unavailable [phone] Patrizia Melara NP Unavailable [phone] Encounter Details Date Type Department Care Team (Late st Contact Info) Description 12/26/2020 Ancillary Orders Virtual Department 30 [place] [address] Herve Torres DO [address] [facility] [place] [address] Breast screening Social History Tobacco Use Types [...] MAMMOGRAM SCREENING WITH TOMOSYNTHESIS WITH CAD (BILATERAL) (02/20/2021 7:34 AM EDT) Anatomical Region Laterality Modality Breast Left, Breast Right, Breast Bilateral Bila teral Mammography 02/20/2021 8:41 AM EDT Impressions 02/20/2021 8:51 AM EDT No mammographic signs of malignancy. Annual screening is recommended. BI-RADS CATEGORY: 2 - Benign finding. DENSITY: There are scattered fibroglandular densities. Narrative 02/20/2021 8:51 AM EDT Bilateral mammography is performed in conjunction with computed aided detection. 3-D tomography along with 2-D C view imaging was also performed. Comparison made to previous dated as far back as 12/12/2002 and as recent as 11/30/2018. No suspicious masses, areas of architectural distortion or suspicious microcalcifications. Stable mild bilateral vascular calcifications. Procedure Note Steven Colindres MD - 02/20/2021 Bilateral mammography is performed in conjunction with computed aideddetection. 3-D tomography along with 2-D C view imaging was alsoperformed. Comparison made to previous dated as far back as 12/12/2002 andas recent as 11/30/2018. No suspicious masses, areas of architectural distortion or suspiciousmicrocalcifications. Stable mild bilateral vascular calcifications. IMPRESSION: No mammographic signs of malignancy. Annual screening is recommended. BI-RADS CATEGORY: 2 - Benign finding. DENSITY: There are scattered fibroglandular densities. Herve Torres DO IMG MG EXAMS Final Result documented in this encounter Visit Diagnoses Diagnosis Breast screening Breast screening, unspecified Breast screening Breast screening, unspecified documented in this encounter Care Teams Medical Technologist Prn Relationship Specialty Start Date End Date Herve Torres DO PCP - General 04/17/14 Herve Torres DO Historical LMR Provider 08/07/17 Gavin Barton MD [address] [place] [address] [address] [place] [address] [email or web address] Historical LMR Provider 08/07/17 10/25/21 Oc Landin MD [address] [place] [phone] Historical LMR Provider 08/07/17 2 Elías Baldwin MD [address] [place] [address] Historical LMR Provider 08/07/17 Patrizia Melara NP [address] [place] [address] Historical LMR Provider 08/07/17 2 documented as of this encounter Additional Source Comments The information contained in this document represents components of the legal health record. It is not the complete legal health record.[facility]
--- OUTSIDE RECORDS SUMMARY | 2025-08-14 19:47 | XMS_ITS | Encounter Summary ---
Author Organization [facility] Address [address] [facility] [address] [place] [address] Phone Care Team Providers Care Lap Machine Tender Name Role Phone Herve Torres DO Primary Care Provider [phone] Herve Torres DO Unavailable Gavin Barton MD Unavailable [phone] Oc Landin MD Unavailable [phone] Elías Baldwin MD Unavailable [phone] Patrizia Melara NP Unavailable [phone] Reason for Referral * Physical Therapy (Routine) - Closed Specialty Diagnoses / Procedures Referred By Contac t Referred To Contact Physical Therapy Diagnoses Encounter for rehabilitation System, Provider Not In, [facility] [address] [place] [address] Phone: tel: Referral ID Status Reason Start Date Expiration Date Visits Re quested Visits Authorized [id number] Closed 06/29/2018 12/27/2018 16 16 Encounter Details Date Type Department Care Team (Latest Contact Info) Description 06/02/2018 Transcribe Orders [facility] [address] [place] [address] Nathalie Ceja, MOSES [address] [place] [phone] [email or web address] Encounter for rehabilitation (Primary Dx) Social History [...] Diagnoses Orde r Schedule Ambulatory referral to [facility] Physical Therapy Outpatient Referral Routine Encounter for rehabilitation Ordered: 06/02/2018 documented as of this encounter Visit Diagnoses Diagnosis Encounter for rehabilitation- Primary documented in this encounter Additional Health Concerns Infection Onset Date Last Indicated Resolved Time CoV-Risk 06/26/2020 06/26/2020 07/10/2020 1:24 AM EDT documented as of this encounter Care Teams Lap Machine Tender Relationship Specialty Start Date End Date Herve Torres DO PCP - General 04/17/14 Herve Torres DO Historical LMR Provider 08/07/17 Gavin Barton MD [address] [place] [address] Historical LMR Provider 08/07/17 10/25/21 Oc Landin MD [address] [place] [phone] Historical LMR Provider 08/07/17 2 Elías Baldwin MD [address] [place] [address] Historical LMR Provider 08/07/17 Patrizia Melara NP [address] [place] [address] Historical LMR Provider 08/07/1710/25/ 2 documented as of this encounter Additional Source Comments The information contained in this document represents components of the legal health record. It is not the complete legal health record.[facility]
--- OUTSIDE RECORDS SUMMARY | 2025-08-14 19:47 | XMS_ITS | Encounter Summary ---
Author Organization [facility] Address [address] [facility] [address] [place] [address] Phone Care Team Providers Care Ore Miner Name Role Phone Grantsha Herve Santana DO Primary Care Provider [phone] Herve Torres DO Unavailable Gavin Barton MD Unavailable [phone] Oc Landin MD Unavailable [phone] Elías Baldwin MD Unavailable [phone] Patrizia Melara NP Unavailable [phone] Encounter Details Date Type Department Care Team (Latest Contact Info) Description 06/26/2020 Transcribe Orders Virtual Department [address] [place] [address] Lexy Olson PA [address] [place] [address] [place] [address] Cough (Primary Dx); Stuffy and runny nose Social History Tobacco Use Types Packs/Day Years [...] documented as of this encounter Results * COVID-19 PCR Order (06/26/2020 3:07 PM EDT) Specimen Source NASOPHARYNGEAL SWAB (HR REPRESENTATIVE) [facility] COVID Testing Status Sent to [facility] Other 06/26/2020 3:07 PM EDT 06/26/2020 5:43 PM EDT Lexy INMAN BODY FLUIDS AND STOOLS PILAR GALVIN Final Result [facility] [address] [place] [address] documented in this encounter Visit Diagnoses Diagnosis Cough- Primary Stuffy and runny nose Other diseases of nasal cavity and sinuses documented in this encounter Additional Health Concerns Infection Onset Date Last Indicated Resolved Time CoV-Risk 06/26/2020 06/26/2020 07/10/2020 1:24 AM EDT documented as of this encounter Care Teams Ore Miner Relationship Specialty Start Date End Date Herve Torres DO PCP - General 04/17/14 Herve Torres DO Historical LMR Provider 08/07/17 Gavin Barton MD [address] [place] [address] Historical LMR Provider 08/07/17 10/25/21 Oc Landin MD [address] [place] [phone] Historical LMR Provider 08/07/17 2 Elías Baldwin MD [address] [place] [address] Historical LMR Provider 08/07/17 Patrizia Melara NP [address] [place] [address] Historical LMR Provider 08/07/17 2 documented as of this encounter Additional Source Comments The information contained in this document represents components of the legal health record. It is not the complete legal health record.[facility]
--- OUTSIDE RECORDS SUMMARY | 2025-08-14 19:47 | XMS_ITS | Encounter Summary ---
Author Organization [facility] Address [address] [facility] [address] [place] [address] Phone Care Team Providers Care Vest Presser Name Role Phone GrantHerve dalton Max MCCRAY Primary Care Provider [phone] Herve Torres DO Unavailable Gavin Barton MD Unavailable [phone] Oc Landin MD Unavailable [phone] Elías Baldwin MD Unavailable [phone] Patrizia Melara NP Unavailable [phone] Encounter Details Date Type Department Care Team (Latest Contact Info) Description 06/01/2018 Ancillary Orders [facility], X-Ray - [address] [address] Nathalie Ceja NP [address] [place] [phone] [email or web address] Spondylolisthesis at L4-L5 level Social History Tobacco Use Types Packs/Day Years [...] documented as of this encounter Results * XR LUMBOSACRAL SPINE 2-3 VIEWS (06/01/2018 4:12 PM EDT) Anatomical Region Laterality Modality L-spine Radiographic María ging 06/01/2018 6:47 PM EDT Impressions 06/01/2018 8:38 PM EDT Grade 1 spondylolisthesis at L4-5 with mild motion on flexion-extension imaging. POS - [id number] Edited by: Sowmya Atkinson on 06/01/2018 6:56 PM Narrative 06/01/2018 8:38 PM EDT HISTORY: L4-5 spondylosis in 2008, now worsening back pain in a setting of chronic lumbar stenosis. Right lower extremity symptoms. COMPARISON: 05/09/2014. FINDINGS: Lateral views of the lumbar spine are obtained in neutral, flexion, and extension position. Anterolisthesis of L4 on L5 measures 4 mm in neutral position, 3 mm with extension, and 6 mm with flexion. This is likely related to severe facet arthropathy. No new compression deformities. Severe facet arthropathy also present at L5-S1. Slightly progressive moderate disc space narrowing with endplate osteophytes from T11-12 through L1-2 and to a lesser degree at L2-3. Procedure Note Rodríguez Canales MD - 06/01/2018 HISTORY: L4-5 spondylosis in 2008, now worsening back pain in a setting ofchronic lumbar stenosis. Right lower extremity symptoms. COMPARISON: 05/09/2014. FINDINGS: Lateral views of the lumbar spine are obtained in neutral, flexion, andextension position. Anterolisthesis of L4 on L5 measures 4 mm in neutral position, 3 mm withextension, and 6 mm with flexion. This is likely related to severe facetarthropathy. No new compression deformities. Severe facet arthropathyalso present at L5-S1. Slightly progressive moderate disc space narrowingwith endplate osteophytes from T11-12 through L1-2 and to a lesser degreeat L2-3. IMPRESSION: Grade 1 spondylolisthesis at L4-5 with mild motion on flexion-extensionimaging. POS - [id number] Edited by: Sowmya Atkinson on 06/01/2018 6:56 PM Nathalie Ceja CREDIT ADMINISTRATION SPECIALIST IMG XR SPINE Final Result documented in this encounter Visit Diagnoses Diagnosis Spondylolisthesis at L4-L5 level Spondylolisthesis at L4-L5 level documented in this encounter Additional Health Concerns Infection Onset Date Last Indicated Resolved Time CoV-Risk 06/26/2020 06/26/2020 07/10/2020 1:24 AM EDT documented as of this encounter Care Teams Vest Presser Relationship Specialty Start Date End Date Herve Torres DO PCP - General 04/17/14 Herve Torres DO Historical LMR Provider 08/07/17 Gavin Barton MD [address] [place] [address] Historical LMR Provider 08/07/17 10/25/21 Oc Landin MD [address] [place] [phone] Historical LMR Provider 08/07/17 2 Elías Baldwin MD [address] [place] [address] Historical LMR Provider 08/07/17 Patrizia Melara NP [address] [place] [address] Historical LMR Provider 08/07/17 2 documented as of this encounter Additional Source Comments The information contained in this document represents components of the legal health record. It is not the complete legal health record.[facility]
--- OUTSIDE RECORDS SUMMARY | 2025-08-14 19:47 | XMS_ITS | Encounter Summary ---
Author Organization [facility] Address [address] [facility] [address] [place] [address] Phone Care Team Providers Care Optical Sales Associate Name Role Phone GrantHerve dalton Max MCCRAY Primary Care Provider Herve Torres DO Unavailable Elías Baldwin MD Unavailable Encounter Details Date Type Department Care Team (Late st Contact Info) Description 09/27/2024 Procedure Pass [facility], [address] [address] Social History Tobacco Use Types Packs/Day Years [...] on filedocumented in this encounter Care Teams Optical Sales Associate Relationship Specialty Start Date End Date Herve Torres DO PCP - General 04/17/14 Herve Torres DO Historical LMR Provider 08/07/17 Elías Baldwin MD [address] [place] [address] Historical LMR Provider 08/07/17 documented as of this encounter Additional Source Comments The information contained in this document represents components of the legal health record. It is not the complete legal health record.[facility]
--- OUTSIDE RECORDS SUMMARY | 2025-08-14 19:47 | XMS_ITS | Encounter Summary ---
Author Organization [facility] Address [address] [facility] [address] [place] [address] Phone Care Team Providers Care Care Program Resident Name Role Phone Herve Torres DO Primary Care Provider [phone] Herve Torres DO Unavailable Gavin Barton MD Unavailable [phone] Oc Landin MD Unavailable [phone] Elías Baldwin MD Unavailable [phone] Patrizia Melara NP Unavailable [phone] Encounter Details Date Type Department Care Team (Late st Contact Info) Description 12/26/2020 Procedure Pass [facility], [address] [address] Social History Tobacco Use Types Packs/Day Years [...] on filedocumented in this encounter Care Teams Care Program Resident Relationship Specialty Start Date End Date Herve Torres DO PCP - General 04/17/14 Herve Torres DO Historical LMR Provider 08/07/17 Gavin Barton MD [address] [place] [address] Historical LMR Provider 08/07/17 10/25/21 Oc Landin MD [address] [place] [phone] Historical LMR Provider 08/07/17 2 Elías Baldwin MD [address] [place] [address] Historical LMR Provider 08/07/17 Patrizia Melara NP [address] [place] [address] Historical LMR Provider 08/07/17 2 documented as of this encounter Additional Source Comments The information contained in this document represents components of the legal health record. It is not the complete legal health record.[facility]
--- OUTSIDE RECORDS SUMMARY | 2025-08-14 19:47 | XMS_ITS | Encounter Summary ---
Author Organization [facility] Address [address] [facility] [address] [place] [address] Phone Care Team Providers Care Causticiser Name Role Phone Herve Torres DO Primary Care Provider [phone] Herve Torres DO Unavailable Elías Baldwin MD Unavailable [phone] Encounter Details Date Type Department Care Team ([facility] st Contact Info) Description 10/04/2023 Transcribe Orders Virtual Department [address] [place] [address] Herve Torres DO [address] [facility] [place], [place] [id number] [email or web address] Breast screening (Primary Dx) Social History Tobacco Use Types [...] MAMMOGRAM SCREENING WITH TOMOSYNTHESIS WITH CAD (BILATERAL) (12/23/2023 11:04 AM EST) Anatomical Region Laterality Modality Breast Left, Breast Right, Breast Bilateral Bila teral Mammography 12/27/2023 1:02 PM EDT Impressions 12/27/2023 1:04 PM EDT No mammographic evidence of malignancy in either breast. Annual screening mammography is recommended. BI-RADS 1 NEGATIVE The patient will be notified of the results and recommendations. Narrative 12/27/2023 1:04 PM EDT BI MAMMOGRAM SCREENING WITH TOMOSYNTHESIS WITH CAD (BILATERAL) Additional patient information: Screening. COMPARISON: Comparison is made with relevant prior imaging. Breast composition: There are scattered areas of fibroglandular density. FINDINGS: No abnormal masses, suspicious calcifications, or other significant findings are identified mammographically in either breast. There has been no interval change. Procedure Note Jolie Britton MD - 12/27/2023 BI MAMMOGRAM SCREENING WITH TOMOSYNTHESIS WITH CAD (BILATERAL) Additional patient information: Screening. COMPARISON: Comparison is made with relevant prior imaging. Breast composition: There are scattered areas of fibroglandular density. FINDINGS: No abnormal masses, suspicious calcifications, or other significantfindings are identified mammographically in either breast. There has beenno interval change. IMPRESSION: No mammographic evidence of malignancy in either breast. Annual screening mammography is recommended. BI-RADS 1 NEGATIVE The patient will be notified of the results and recommendations. us Herve A Bigda DO IMG MG EXAMS Final Result documented in this encounter Visit Diagnoses Diagnosis Breast screening- Primary Breast screening, unspecified Breast screening Breast screening, unspecified documented in this encounter Care Teams Causticiser Relationship Specialty Start Date End Date Herve Torres DO [email or web address] PCP - General 04/17/14 GrantHerve dalton DO [email or web address] Historical LMR Provider 08/07/17 Elías Baldwin MD [address] [place] [address] Historical LMR Provider 08/07/17 documented as of this encounter Additional Source Comments The information contained in this document represents components of the legal health record. It is not the complete legal health record.[facility]
[2025-08-15 07:08] LABS: Hemoglobin A1C 122.4472 umol/L; Total Hemoglobin (HGBA1C) 3788.7677 umol/L
== END 2025-08-14 15:24 | disposition home or self-care (01) ==
LOC: HO.MANLDS 15:23
PROVIDERS: Visit Provider Physician Assistant
DX: Z00.00 Encounter for general adult medical examination without abnormal findings (principal); Z13.6 Encounter for screening for cardiovascular disorders; Z13.1 Encounter for screening for diabetes mellitus
CPT/HCPCS: 36415; 80053; 80061; 83036; 85025